=== PATIENT | male | born 1985 | race African-American/Black ===

== ENCOUNTER 2017-05-04 18:40 | Emergency (ER) | payer MEDICAID ==
[~2017-05-04] VITALS: Ht 185.4 cm; Wt 101.5 kg
[2017-05-04 18:41] VITALS: BP 137/87
[2017-05-04] MEDS ORDERED: DOCUSATE 50 MG/5 ML ORAL SOL OT ONE (19:30)
== END 2017-05-04 21:27 | disposition home or self-care (01) ==
LOC: ED 21:00
DX: H90.2 Conductive hearing loss, unspecified (principal); H61.22 Impacted cerumen, left ear; F15.10 Other stimulant abuse, uncomplicated
CPT/HCPCS: 99283